=== PATIENT | female | born 1985 | race Caucasian/White ===

== ENCOUNTER 2023-05-13 17:17 | Inpatient (IN) ==
[2023-05-13] MEDS ORDERED: LACTATED RINGER'S 1,000 ML IV PRN (17:22)
[2023-05-13] MEDS ORDERED: LIDOCAINE 1% LOCAL 20 ML VIAL INFIL PRN (17:22)
[2023-05-13] MEDS ORDERED: fentaNYL citrate PF 100 MCG/2 ML VIAL ONE (17:25)
[2023-05-13] MEDS ORDERED: PENICILLIN G POTASSIUM 6 MU in DEXTROSE 5% 250 ML IV STA (17:26)
[2023-05-13] MEDS ORDERED: fentaNYL 2MCG/ML ROPIVACAINE 1.25MG/ML 100 ML BAG EPI ONE (17:26)
[2023-05-13] MEDS ORDERED: ePHEDrine sulfate 50 MG/ML AMP ONE (17:26)
[2023-05-13] MEDS ORDERED: LIDOCAINE 2%/EPINEPHRINE 1:200,000 20 ML PF ONE (17:26)
[2023-05-13] MEDS ORDERED: SODIUM CHLORIDE 0.9% PF INJ 10 ML VIAL ONE (17:26)
[2023-05-13] MEDS ORDERED: BUPIVACAINE 0.25% PF 30 ML VIAL ONE (17:26)
--- NOTE | 2023-05-13 17:29 | Obstetrical Progress Note ---
Date of Service May 13, 2023 Assessment & Plan (1) No care in current : Plan: 37yo presents to L&d with vaginal bleeding pt is visibly but denies knowledge of she reports regular menses up until last month sent to L&d for eval; FHR; CAT1 ctx 2-5 mons bedside sono; Vt/post placenta FH; 38cm VE 5-6/70/0 station with bloody show Plan admit labs Sono by radiology start antbx Peds notified labs Anticipate VD Results & Data Vital Signs (Past 12 Hours) Vital Signs Pulse BP 05/13/23 17:23 98 H 118/65
[2023-05-13] MEDS ORDERED: BETAMETH SOD PHOS/ACETATE IA 6 MG/ML IM STA (17:47)
--- NOTE | 2023-05-13 18:07 | Ultrasound Report ---
US OB limited HISTORY: 37 years-old Female No care patient presents in active labor COMPARISON: None TECHNIQUE: Multiple real-time sonographic images of the deep pelvic structures were obtained transabd ominally consisting edmond scale appearance and M-mode analysis FINDINGS: Single living intrauterine gestation in vertex position with heart rate of 119 bpm. Abdominal circumf erence is 30.4 cm, 34 weeks 2 days. Femur length is 6.9 cm, 35 weeks 2 days. The patient is reportedl y in active labor. Anterior placenta. IMPRESSION: Single living intrauterine gestation in vertex position with estimated gestational age of 34 weeks and 6 days. ACT 112: Negative or not required by law. The above report was generated using voice recognition software. It may contain grammatical, syntax o r spelling errors. Electronically signed by: Carlos Alberto Stevens M.D. 05/13/2023 6:05 PM
[2023-05-13 18:11] LABS: Hemoglobin 9.8 g/dl (12.0-16.0); Mean Corpuscular Hgb Conc 32.7 g/dL (32.0-36.0); Mean Corpuscular Volume 85.7 fL (80.0-100.0); Mean Platelet Volume 11.1 fL (9.4-12.4); Platelet Count 294 K/uL (130-400); RDW Coefficient of Variation 14.7 % (11.5-14.5); RDW Standard Deviation 46.2 fL (36.4-46.3); White Blood Count 14.48 K/ul (4.8-10.8)
[2023-05-13] MEDS: OXYTOCIN 30 UNITS/500 ML BAG IV PRN ×2 (18:21→18:59)
[2023-05-13 18:24] LABS: Amphetamines+Metham, Urine Neg (Neg); Barbiturates, Urine Neg (Neg); Benzodiazepine, Urine Neg (Neg); Cocaine, Urine Neg (Neg); MDMA (Ecstacy), Urine Neg (Neg); Methadone, Urine Neg (Neg); Opiate, Urine Pos (Neg); Phencyclidine, Urine Neg (Neg)
[2023-05-13] MEDS ORDERED: METHYLERGONOVINE MALEATE 0.2 MG/ML AMP ONE (18:41)
[2023-05-13] MEDS ORDERED: METHYLERGONOVINE MALEATE 0.2 MG/ML AMP IM ONE (19:23)
[2023-05-13] MEDS ORDERED: DIPHTHERIA/TETANUS/PERTUSSIS Vaccine (Tdap, Age 7+yrs) 0.5mL SYR/VL IM ONE (19:23)
[2023-05-13] MEDS ORDERED: BENZOCAINE 20% SPRY 85 APPLN/85 GM CAN EXT PRN (19:23)
[2023-05-13] MEDS ORDERED: HYDROCORTISONE ACETATE 25 MG SUPP PR PRN (19:23)
[2023-05-13] MEDS ORDERED: ACETAMINOPHEN 325 MG TAB PO PRN (19:23)
[2023-05-13] MEDS ORDERED: bisacodyL 10 MG SUPP PR PRN (19:23)
[2023-05-13] MEDS ORDERED: OXYTOCIN 30 UNITS/500 ML BAG IV PRN (19:23)
--- NOTE | 2023-05-13 19:27 | Delivery Summary ---
Vaginal Delivery Summary Date of Service May 13, 2023 Vaginal Delivery Summary DELIVERY NOTE Precipitous delivery No care Patient delivered a live male in compound presentation with eft arm. There was no nuchal cord. Infant was delivered and placed on mother's abdomen. Delayed cord clamping was performed. Cord blood is obtained Cord gasses are obtained Meconium is absent Placenta is spontaneously delivered. Placenta appears grossly normal and has 3 vessel cord Inspection of the perineum showed no laceration. Rectal exam post repair showed good sphincter tone no sutures palpated in the rectum. Estimated blood loss is 450 cc per Infants weight and scores are in the pediatric record Mother and baby are stable in in the recovery
[2023-05-13 19:28] LABS: Base Excess Cord Venous Blood -3.1 mEq/L (-7.7-1.9); Cord Venous Blood HCO3 22 mmol/L (18.4-26.8); Cord Venous Blood PCO2 39 mmHg (30.4-57.2); Cord Venous Blood PO2 30 mmHg (14.1-43.3); Cord Venous Blood pH 7.36 (7.20-7.44); O2 Saturation Cord Venous Bld 61.2 % (<68)
[2023-05-13] MEDS ORDERED: LACTATED RINGER'S 1,000 ML IV SCH (19:30)
[2023-05-13] MEDS: IBUPROFEN 600 MG TAB PO PRN ×2 (19:51→22:32)
[2023-05-13] MEDS ORDERED: PENICILLIN G POTASSIUM 3 MU in DEXTROSE 5% 100 ML IV PRN (20:23)
[2023-05-13] MEDS: DOCUSATE SODIUM 100 MG CAP PO SCH (22:32)
[2023-05-14] MEDS: IBUPROFEN 600 MG TAB PO PRN ×3 (03:33→12:24)
[2023-05-14 07:14] LABS: Hematocrit (blood only) 26.8 % (37.0-47.0); Hemoglobin 8.7 g/dl (12.0-16.0); Mean Corpuscular Hemoglobin 28.3 pg (25.0-34.0); Mean Corpuscular Hgb Conc 32.5 g/dL (32.0-36.0); Mean Corpuscular Volume 87.3 fL (80.0-100.0); Mean Platelet Volume 11.3 fL (9.4-12.4); Platelet Count 254 K/uL (130-400); RDW Coefficient of Variation 14.4 % (11.5-14.5); RDW Standard Deviation 45.4 fL (36.4-46.3); Red Blood Count 3.07 M/uL (4.20-5.40); White Blood Count 14.39 K/ul (4.8-10.8)
[2023-05-14] MEDS: DOCUSATE SODIUM 100 MG CAP PO SCH ×2 (08:09→20:42)
[2023-05-14] MEDS: PRENATAL VITAMIN 1 TAB PO SCH (08:09)
--- NOTE | 2023-05-14 09:04 | Obstetrical Progress Note ---
Date of Service May 14, 2023 Assessment & Plan (1) Normal course: PPD #1 No care pt doing well continue day #1 care Subjective Ambulation: ambulating normally Voiding: no voiding problems Passing Gas:: Yes Diet Tolerance:: regular diet Lochia:: Small Feeding Type:: breast feeding Review of Systems All systems reviewed & are unremarkable except as noted in HPI & below Physical Exam Constitutional WD/WN, vitals as above well developed and well nourished Eyes PERRL, conjunctivae normal, anicteric sclerae Neck trachea midline, no thyromegaly Respiratory normal respiratory effort, lungs clear to auscultation Auscultation: no crackles, no rales and no wheezes Cardiovascular RRR, no murmur, no edema Gastrointestinal (Abdomen) normal bowel sounds, soft, nontender, no hepatosplenomegaly Uterus is below umbilicus Musculoskeletal no cyanosis or clubbing, extremities motor strength 5/5 Skin no rashes, warm and dry Neurologic patellar DTR's 2+ bilat, sensation intact Psychiatric A+Ox3, euthymic affect Genitourinary normal external appearance Results & Data Vital Signs (Past 12 Hours) Vital Signs Temp Pulse Pulse Resp BP BP Pulse Ox 05/14/23 08:18 36.6 C 70 16 103/64 96 05/14/23 03:24 36.6 C 64 18 101/63 97 05/13/23 23:03 37.2 C 63 20 116/73 97 05/13/23 22:14 71 108/63 O2 Del Method 05/14/23 08:18 Room Air 05/14/23 03:24 Room Air 05/13/23 23:03 Room Air 05/13/23 22:14
[2023-05-14] MEDS ORDERED: bisacodyL 5 MG TABEC PO SCH (20:00)
[2023-05-15] MEDS: IBUPROFEN 600 MG TAB PO PRN ×2 (00:01→08:27)
[2023-05-15 06:23] LABS: Hematocrit (blood only) 22.9 % (37.0-47.0); Hemoglobin 7.3 g/dl (12.0-16.0)
[2023-05-15] MEDS: PRENATAL VITAMIN 1 TAB PO SCH (08:28)
[2023-05-15] MEDS: DOCUSATE SODIUM 100 MG CAP PO SCH (08:28)
--- NOTE | 2023-05-15 10:17 | Obstetrical Progress Note ---
Date of Service May 15, 2023 Subjective Ambulation: ambulating normally Voiding: no voiding problems Passing Gas:: Yes Diet Tolerance:: regular diet Lochia:: Small Feeding Type:: breast feeding Current Pain Level(1-10): 0 doing well will go to nesting if baby stays Physical Exam Constitutional WD/WN, vitals as above Skin no rashes, warm and dry Neurologic patellar DTR's 2+ bilat, sensation intact Results & Data Vital Signs (Past 12 Hours) Vital Signs Temp Pulse Resp BP Pulse Ox O2 Del Method 05/15/23 04:30 36.5 C 66 16 104/59 L 97 Room Air 05/15/23 00:00 36.7 C 68 16 103/62 97 Room Air Laboratory Results 05/13/23 05/13/23 05/13/23 17:49 17:49 18:18 WBC 14.48 H RBC 3.50 L Hgb 9.8 L Hct 30.0 L MCV 85.7 MCH 28.0 MCHC 32.7 RDW Std Deviation 46.2 RDW Coeff of Juhi 14.7 H Plt Count 294 MPV 11.1 Cord VBG pH 7.36 Cord VBG pCO2 39 Cord VBG pO2 30 Cord VBG HCO3 22 Cord VBG Base Excess -3.1 Cord VBG O2 Sat 61.2 Blood Gas Comments HART Urine Opiates Screen Ur Methadone, Qual Urine Barbiturates Ur Phencyclidine (PCP) U Amphetamin/Meth Scrn MDMA (Ecstasy) Screen U Benzodiazepines Scrn Ur Cocaine Metabolite U Marijuana (THC) Screen Blood Type A Positive Antibody Screen NEGATIVE 05/13/23 05/14/23 05/15/23 Unknown 06:41 06:04 WBC 14.39 H RBC 3.07 L Hgb 8.7 L 7.3 L Hct 26.8 L 22.9 L MCV 87.3 MCH 28.3 MCHC 32.5 RDW Std Deviation 45.4 RDW Coeff of Juhi 14.4 Plt Count 254 MPV 11.3 Cord VBG pH Cord VBG pCO2 Cord VBG pO2 Cord VBG HCO3 Cord VBG Base Excess Cord VBG O2 Sat Blood Gas Comments Urine Opiates Screen Pos H Ur Methadone, Qual Neg Urine Barbiturates Neg Ur Phencyclidine (PCP) Neg U Amphetamin/Meth Scrn Neg MDMA (Ecstasy) Screen Neg U Benzodiazepines Scrn Neg Ur Cocaine Metabolite Neg U Marijuana (THC) Screen Neg Blood Type Antibody Screen
[2023-05-16 12:51] LABS: Chlam trach RNA(Genit,Ureth,Ur Not Detected (NotDetected); GC(Neis gon)RNA(Genit,Ureth,Ur Not Detected (NotDetected)
[2023-05-16 12:56] LABS: Trichomonas vag RNA GenitalFem Not Detected (NotDetected)
[2023-05-16 19:27] LABS: HBSAG NON-REACTIVE (NON-REACTIVE); Hepatitis C Vira RNA (Log) PCR <1.18 NOT DETECTED Log IU/mL (NOT DETECTED); Hepatitis C Viral RNA by PCR <15 NOT DETECTED IU/mL (NOT DETECTED)
--- NOTE | 2023-05-17 11:03 | Coding Query ---
CODING QUERY To promote full compliance with coding requirements relating to patient care, provider participation is requested in all cases of automotive sales associate uncertainty. Please assist us with the question(s) below: Coding Question(s): Patient admitted in labor, no care . Patient delivered this admission. Please document, if known or suspected, the number of weeks gestation. Thanks for your help! Camilo Sanchez [facility] Physician's Response(s): Principal Diagnosis: "that condition established after study, to be chiefly responsible for occasioning the admission of the patient to the hospital for care." Co-Existing Principal Diagnosis: "when two or more diagnoses equally meet the criteria for principal diagnosis as determined by the circumstances of admission, diagnostic work up, and/or therapy provided, and the Alphabetic Index, Tabular List, or another coding guideline does not provide sequencing direction, any one of the diagnoses may be sequenced first." "When the physician has documented what appears to be a current diagnosis in the body of the record, but has not included the diagnosis in the final diagnostic statement, the physician should be asked whether the diagnosis should be added." (Source [facility]oding [facility] 2 QTR90. p3-4) KAVITA
[2023-05-17 11:12] LABS: Codeine Urine NEGATIVE ng/mL (<50); Hydrocodone Urine NEGATIVE ng/mL (<50); Hydromor Urine NEGATIVE ng/mL (<50); Morphine Urine 3510 ng/mL (<50); Norhydrocodone Conf Ur NEGATIVE ng/mL (<50); Noroxycodone Urine NEGATIVE ng/mL (<50); Oxycodone Urine NEGATIVE ng/mL (<50); Oxymorph Urine NEGATIVE ng/mL (<50)
== END 2023-05-15 13:35 | disposition home or self-care (01) | DRG 807 ==
LOC: OPB 17:17 → 4S1 17:18 → 4E2 23:13